=== PATIENT | male | born 1990 | race African-American/Black ===

== ENCOUNTER 2019-06-16 00:14 | Emergency (ER) | payer OTHER ==
[~2019-06-16] VITALS: Ht 167.6 cm; Wt 59.0 kg
[2019-06-16 01:21] LABS: ABSOLUTE NEUTROPHILS 7.4 thou/uL (1.4-8.2); BASOPHILS 0.3 % (0.0-2.0); EOSINOPHILS 0.3 % (0.0-3.0); HEMATOCRIT 49.7 % (42.0-52.0); HEMOGLOBIN 16.5 gm/dL (14.0-18.0); LYMPHOCYTES 18.1 % (24.0-44.0); MCH 31.3 pg (26.0-34.0); MCHC 33.3 g/dL (28.0-37.0); MCV 93.9 fL (80.0-100.0); MONOCYTES 6.5 % (1.0-8.0); PLATELET COUNT 128 thou/uL (150-400); POLYS 74.8 % (36.0-66.0); RBC 5.29 mil/uL (4.50-6.00); RDW 12.7 % (10.5-14.5); WBC 9.9 thou/uL (4.0-11.0)
[2019-06-16 01:28] LABS: CALCIUM 8.4 mg/dL (8.5-10.1); CREATININE 1.1 mg/dL (0.7-1.3); POTASSIUM 3.5 mmol/L (3.5-5.1)
[2019-06-16 01:35] LABS: ALBUMIN 3.5 g/dL (3.4-5.0); MAGNESIUM 1.8 mg/dL (1.8-2.4); TOTAL BILIRUBIN 0.5 mg/dL (<0.1-1.0)
[2019-06-16 01:49] LABS: URINE BILIRUBIN NEGATIVE (Negative); URINE BLOOD NEGATIVE (Negative); URINE CLARITY CLEAR; URINE COLOR YELLOW; URINE GLUCOSE-RANDOM* 1+ (Negative); URINE KETONES NEGATIVE (Negative); URINE LEUKOCYTES-REFLEX NEGATIVE (Negative); URINE NITRITE-REFLEX NEGATIVE (Negative); URINE PROTEIN (DIPSTICK) NEGATIVE (Negative); URINE SPECIFIC GRAVITY 1.025 (1.005-1.035)
[2019-06-16 02:01] LABS: AMP/METHAMP Negative (Negative); BARBITURATES Negative (Negative); BENZODIAZEPINES Negative (Negative); COCAINE Negative (Negative); METHADONE Negative (Negative); OPIATES Negative (Negative); PCP Negative (Negative)
[2019-06-16 02:26] VITALS: BP 132/74
--- NOTE | 2019-06-16 08:09 | EKG ---
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: FRAKN : 1990 Requested By: Miranda Ríos Order Number: [id number] MD: Rolando Villareal Measurements Intervals [place] Rate: 114 P: 84 AL: 134 QRS: 71 QRSD: 111 T: 87 QT: 457 QTc: 630 Interpretive Statements Sinus tachycardia Right atrial enlargement RSR' in V1 or V2, probably normal variant Probable left ventricular hypertrophy ST elev, probable normal early repol pattern Prolonged QT interval No previous ECG available for comparison Electronically Signed On 06-16-2019 8:08:59 CDT by Rolando Villareal [email or web address] <ELECTRONICALLY SIGNED> By: Rolando Villareal MD 06/16/19 0808 Rolando Villareal MD /TK
--- NOTE | 2019-06-16 13:54 | EKG ---
[address] [address] [place] [employer] [facility] [employer] [place] [address] ELECTROCARDIOGRAM REPORT Name: KALEB SIMENTAL Room #: [facility] BARBARA Ortega#: [id number] Admission: 06/16/19 Attend Phys: Discharge: 06/16/19 Date of : [birth year] Report #: [id number] THIS REPORT FOR: //name// [facility] ED Test Date: 2019-06-16 Test Time: 01:54:52 Pat Name: KALEB SIMENTAL Department: Room: Gender: Sound Printer: Antony EVANS RN : 1990 Requested By: Miranda Ríos Order Number: [id number] MD: Rolando Villareal Measurements Intervals [place] Rate: 92 P: 102 MI: 170 QRS: 73 QRSD: 69 T: 76 QT: 337 QTc: 417 Interpretive Statements Sinus rhythm Right atrial enlargement LVH by voltage Compared to ECG 06/16/2019 00:27:01 Sinus tachycardia no longer present Prolonged QT interval no longer present Electronically Signed On 06-16-2019 13:54:52 CDT by Rolando Villareal [email or web address] <ELECTRONICALLY SIGNED> By: Rolando Villareal MD 06/16/19 1354 [id number] 0154 Rolando Villareal MD /TK
== END 2019-06-16 02:32 | disposition home or self-care (01) ==
LOC: ER 00:14
PROVIDERS: Student in an Organized Health Care Education/Training Program
DX: F12.90 Cannabis use, unspecified, uncomplicated (principal); F17.210 Nicotine dependence, cigarettes, uncomplicated; Z91.018 Allergy to other foods